=== PATIENT | male | born 1955 | race Caucasian/White ===

== ENCOUNTER → 2017-09-07 | Outpatient (CLI) | payer BC | LOC: COL.LAB 18:35 | DX: Z01.89 Encounter for other specified special examinations (principal) ==

== ENCOUNTER → 2020-07-29 | Outpatient (CLI) | payer OTHER, BC | LOC: ZCOL.LAB 21:42 | DX: B34.9 Viral infection, unspecified (principal); Z20.828 Contact with and (suspected) exposure to other viral communicable diseases ==